=== PATIENT | male | born 1995 ===

== ENCOUNTER 2024-05-15 13:48 | Emergency (ER) | payer OTHER, SELFPAY ==
[2024-05-15 14:00] VITALS: BP 129/74
[2024-05-15 14:11] VITALS: BMI 27.4
[2024-05-15] MEDS: ADACEL 0.5 ML IM (15:46)
[2024-05-15] MEDS: AUGMENTIN 875 MG/125 MG 1 TABLET PO (15:55)
--- NOTE | 2024-05-15 16:07 | ED.SKININJ ---
HPI-Injury
General
Chief Complaint: Bite
Time Seen by Provider: 05/15/24 15:02
Course
Orders/Labs/Results
Orders:
Orders
05/15/24 15:15
Tetanus/Diphth/Acelpertussis [Adacel] 0.5 ml IM .ONCE ONE
05/15/24 15:17
Visual Acuity- Treatment ONCE
05/15/24 15:40
Amoxicillin 875 mg/Clav 125 mg [Augmentin 875 mg/125 mg] 1 tablet PO NOW STA
Vital Signs
Initial and Last Documented VS:
Initial Vital Signs
Temp Pulse Resp BP Pulse Ox
97.9 F 85 18 129/74 100
05/15/24 14:00 05/15/24 14:00 05/15/24 14:00 05/15/24 14:00 05/15/24 14:00
Last Documented Vital Signs
Temp Pulse Resp BP Pulse Ox
97.9 F 85 18 129/74 100
05/15/24 14:00 05/15/24 14:00 05/15/24 14:00 05/15/24 14:00 05/15/24 14:00
ED Attending Note
-
Portions of this chart may have been created with voice recognition software.� Occasional wrong word or��sound alike� substitutions may have occurred due to the inherent limitations of voice recognition software.
Discharge Plan
Departure
Referrals:
NONE,* [Family Provider] -
Interventions
Interventions:
*Risk Screen - Suicide Last Done: 05/15/24 14:14
*Neglect/Abuse Screening Last Done: 05/15/24 14:14
*ED COVID-19 Vaccine History Last Done: 05/15/24 14:11
ED-Skin Assessment Last Done: 05/15/24 14:12
Discharge Date and Time
Print Language: GEORGIAN
--- NOTE | 2024-05-15 17:09 | ED.SKININJ ---
HPI-Injury
General
Chief Complaint: Bite
Source: patient and family
Time Seen by Provider: 05/15/24 15:02
History of Present Illness-Injury
Initial Injury comments:
28-year-old male presents with an injury to his left thigh. Patient states that he was playing with his cousin's dog when he bit him. Patient denies any vision difficulties. Dog is up-to-date with shots. The patient is unsure his last tetanus.
No vomiting. No headache. No specific ocular pain.
Past History
Past History
ED Past Medical History: Other (Crohn's colitis)
Phy Exam
Physical Exam
Physical Exam:
CONSTITUTIONAL Vital signs reviewed, Patient alert and oriented to person, place and time. Well-appearing
HEAD atraumatic, normocephalic.
EYES Extraocular muscles intact. 2 cm laceration under the left eye that is superficial. No active bleeding. There is a small T-shaped laceration from the left forehead. There is a slight abrasion above the left brow. He does have a left
medial subconjunctival hemorrhage. Cornea is round and normal with normal reflex to light. There is no teardrop. No Rodolfo sign noted. No fluorescein uptake of the cornea. No gross evidence of globe rupture.
NECK normal range of motion, Trachea midline, no jugular venous distention.
RESP no respiratory distress
BACK No obvious deformities
UPPER EXTREMITY Gross Range of motion normal, gross motor strength normal
LOWER EXTREMITY Gross range of motion normal, Gross motor strength normal
NEURO Speech normal, No focal motor deficits include, Fernanda coma scale 15, Memory normal, Cranial Nerves intact to screening exam.
SKIN Skin warm, dry, and normal in color.
PSYCHIATRIC Patient oriented to person place and time, Normal affect.
Course
Orders/Labs/Results
Orders:
Orders
05/15/24 15:15
Tetanus/Diphth/Acelpertussis [Adacel] 0.5 ml IM .ONCE ONE
05/15/24 15:17
Visual Acuity- Treatment ONCE
05/15/24 15:40
Amoxicillin 875 mg/Clav 125 mg [Augmentin 875 mg/125 mg] 1 tablet PO NOW STA
Vital Signs
Initial and Last Documented VS:
Initial Vital Signs
Temp Pulse Resp BP Pulse Ox
97.9 F 85 18 129/74 100
05/15/24 14:00 05/15/24 14:00 05/15/24 14:00 05/15/24 14:00 05/15/24 14:00
Last Documented Vital Signs
Temp Pulse Resp BP Pulse Ox
97.9 F 85 18 129/74 100
05/15/24 14:00 05/15/24 14:00 05/15/24 14:00 05/15/24 14:00 05/15/24 14:00
MDM/Problems Addressed
MDM/Problems Addressed:
Dog bite, facial laceration, subconjunctival hemorrhage
*Pulse Oximetry
Patient hypoxic: no
*Critical Care Note
Total Time (30-74mins, 75-104mins- exclusive of procedures): Not Applicable
Data Reviewed
Source: patient and family
Further Testing Considered But Not Given:
Considered CT imaging of the orbital bones but no clinical suspicion for fracture or orbital rupture
Patient Management
Escalation/DeEscalation of care consider admission/obs:
Based on the mechanism of the bite it appears that the globe was protected by the eye socket. Lacerations repaired due to the fact that it is cosmetic. Cover with antibiotics including antibiotic eyedrops and oral antibiotics. Will refer to PCP
as well as ophthalmology for follow-up. No evidence of globe rupture or corneal injury
ED Attending Note
-
Portions of this chart may have been created with voice recognition software.� Occasional wrong word or��sound alike� substitutions may have occurred due to the inherent limitations of voice recognition software.
Discharge Plan
Departure
Patient Disposition: Home (Routine Discharge)
Date of Disposition: 05/15/24
Time of Disposition: 17:15
Patient with high blood pressure during this ER visit?: No
Discharge Problem:
Dog bite, Facial laceration, Subconjunctival hemorrhage
Instructions: Animal Bites (DC), Laceration Repair With Glue ED
Prescriptions:
New
amoxicillin-pot clavulanate 875-125 mg tablet
1 tab PO BID Qty: 14 0RF
Referrals:
NONE,* [Family Provider] -
Activity Restrictions/Additional Instructions:
Please use 2 drops to the left eye every 4 hours while awake for 5 days. Please see your doctor in follow-up in the next 1 week. Please see ophthalmology next 2 to 3 days for follow-up as well. Return for fevers, redness of the wound, vision
changes of any kind, headache or any other concerns.
Interventions
Interventions:
*Risk Screen - Suicide Last Done: 05/15/24 14:14
*Neglect/Abuse Screening Last Done: 05/15/24 14:14
*ED COVID-19 Vaccine History Last Done: 05/15/24 14:11
ED-Skin Assessment Last Done: 05/15/24 14:12
Discharge Date and Time
Print Language: MACANESE
[2024-05-15] MEDS: TOBREX 0.3% EYE DROPS 1 DROP OPHTH (17:31)
== END 2024-05-15 18:01 | disposition home or self-care (01) ==
LOC: EMR 13:48
PROVIDERS: EMERGENCY PHYSICIAN Emergency Medicine
DX: S01.81XA Laceration without foreign body of other part of head, initial encounter (principal); S00.212A Abrasion of left eyelid and periocular area, initial encounter; H11.32 Conjunctival hemorrhage, left eye; W54.0XXA Bitten by dog, initial encounter; Z23 Encounter for immunization; K50.10 Crohn's disease of large intestine without complications
CPT/HCPCS: 99282; 90471; 90715